=== PATIENT | male | born 1955 | race Caucasian/White ===

== ENCOUNTER 2019-07-30 12:35 | Emergency (ER) | payer OTHER ==
[~2019-07-30] VITALS: Ht 177.8 cm; Wt 83.9 kg
[2019-07-30] MEDS ORDERED: LISINOPRIL10 MG PO (12:50)
[2019-07-30] MEDS ORDERED: ASPIRIN325 MG PO (12:51)
[2019-07-30] MEDS ORDERED: NORCO 5-325 TA1 EACH PO (15:24)
[2019-07-30] MEDS ORDERED: ONDANSETRON ODT8 MG PO (15:24)
== END 2019-07-30 15:52 | disposition home or self-care (01) ==
LOC: ED 12:35
DX: N20.0 Calculus of kidney (principal); I10 Essential (primary) hypertension; F17.200 Nicotine dependence, unspecified, uncomplicated; Z79.899 Other long term (current) drug therapy; Z87.442 Personal history of urinary calculi
CPT/HCPCS: 71046; 80053; 81001; 85025; 96361; 96374; 96375; 99284-25; 99406; J1170; J1885; J2765; J7120